=== PATIENT | male | born 1960 | race Caucasian/White ===

== ENCOUNTER 2016-10-13 19:07 | Emergency (ER) | payer MEDICAID ==
--- NOTE | 2016-10-19 02:33 | ER ---
ADMIT: 10/13/2016 RM/LOC: ER [facility] MR#: [id number] [address] [place] [address] Emergency Room Report SEX: M AGE: 56 : 1960 DATE: 10/13/2016 ADDENDUM: CHIEF COMPLAINT: Low blood sugars. HISTORY OF PRESENT ILLNESS: This is a 56-year-old male who lives in a halfway. He has a history of COPD, atrial fibrillation, and depression. Today, they were checking his blood sugars. They were in the low 60s. He was lethargic. They called 911. They gave him a half amp of D50. By the time he arrived here, it was over 100. We gave him a sandwich to eat. He has been alert, appropriate for us. He is afebrile. No signs of illness at this time. He denies any cough, denies any shortness of breath, denies any abdominal pain, and denies any dysuria. PAST MEDICAL HISTORY: COPD, depression, bronchitis, BPH, UTI, and atrial fibrillation. MEDICATIONS: Please see nurse's note. ALLERGIES: NO KNOWN ALLERGIES. SOCIAL HISTORY: Denies any tobacco, drug, or alcohol use. FAMILY HISTORY: Noncontributory. REVIEW OF SYSTEMS: CONSTITUTIONAL: Denies any fevers, chills, or sweats. CARDIOVASCULAR/RESPIRATORY: Denies any chest pain or shortness of breath. GASTROINTESTINAL/GENITOURINARY: Denies any nausea, vomiting, or diarrhea. All systems otherwise negative. PHYSICAL EXAMINATION: VITAL SIGNS: Blood pressure is 103/69, pulse 79, respirations 16, temperature is 95.9 tympanic, and saturation oxygen is 92% on room air. GENERAL APPEARANCE: He is no acute distress and alert. HEENT: Pharynx is moist. No tonsillar swelling or exudate. TMs are non- erythemic bilateral. HEART: Regular rate and rhythm. LUNGS: CTA bilateral, but decreased bilateral. ABDOMEN: Soft, nontender to palpation. SKIN: Normal color, warm, and dry. ADMIT: 10/13/2016 RM/LOC: ER [facility] MR#: [id number] [address] JEFE RUB[place] [address] Emergency Room Report SEX: M AGE: 56 : 1960 EXTREMITIES: Legs, no pedal edema. NEURO AND PSYCH: He is alert and oriented x3. COURSE IN THE EMERGENCY ROOM: CMP was moderately hemolyzed, but sodium was 132, potassium 3.6, chloride 85, bicarb is 38, BUN 19, glucose 151, and this was after eating a sandwich. CBC is normal except for white count 11.8, hemoglobin of 12.2, and platelets 433. Urine is normal. Chest x-ray is negative for any acute infection over-read by Dr. Raygoza. I asked the patient again if he had any complaints on checking on him again. He denies any complaints, feels okay to go back to the halfway. CLINICAL IMPRESSION: Hypoglycemic event. WILMA Cee / Fred Jasmine MD / modl JOB #: [id number] CC: Fred Jasmine MD, Attending Physician UNKNOWN, Family Physician
== END 2016-10-13 21:30 ==
LOC: ER 19:07
DX: E11.649 Type 2 diabetes mellitus with hypoglycemia without coma (principal); F32.9 Major depressive disorder, single episode, unspecified; I48.91 Unspecified atrial fibrillation; N40.0 Benign prostatic hyperplasia without lower urinary tract symptoms; Z87.440 Personal history of urinary (tract) infections; Z79.899 Other long term (current) drug therapy

== ENCOUNTER → 2016-10-19 | Outpatient (CLI) | payer MEDICAID ==
--- NOTE | ~2016-10-19 | ECH ---
Transthoracic Echocardiography Report (TTE) Demographics Patient Name RUBEN MAYBERRY Date of Study 10/19/2016 Patient Number [id number] Visit Number [id number] Date of 1960 Room Number Accession Number [id number] Gender Male Age 56 year(s) Referring Esther bIarra Oral Communication Instructor Coral Dukes Physician RDCS Physician Interpreting King Gerber Gama MD Manganese Heater Physician Supervising Ordering Physician Esther Ibarra MD/MLP Nurse Stress Clay Pigeon Loader Conclusions Summary Technically very difficult exam. Limited exam even with Definity utilized. Unable to visualize right heart. The estimated left ventricular ejection fraction is 40-45%. The left ventricle is mildly dilated . Mild concentric left ventricular hypertrophy. The left atrium is moderately dilated. Trivial mitral regurgitation by color Doppler. Procedure Type of Study TTE procedure:Echo Complete SF. Procedure Date Date: 10/19/2016 Start: 01:12 PM Technical Quality: Poor visualization due to body habitus. Indications:Atrial fibrillation. Appropriate Use Criteria: 9 Contrast Medium: Definity. Amount - 1 ml Height: 64 inches Weight: 409 pounds BSA: 2.65 m Rhythm: Atrial fibrillation HR: 102 bpm BP: 142/100 mmHg M-Mode/2D Measurements LV Diastolic Dimension: 6.18 cm LV Systolic Dimension: 5.04 cm LV Septum Diastolic: 1.15 cm LV PW Diastolic: 1.01 cm AO Root Dimension: 3.34 cm Cardiac Output: 4.29 l/min LA Dimension: 4.4 cm Cardiac Index: 1.62 l/min*m RV Diastolic Dimension: 3.09 cm LVOT: 2.23 cm LVOT VTI: 10.78 cm LV Stroke volume: 42.08 ml LV Stroke volume index: 15.88 ml/m Doppler Measurements AV Mean Gradient: 2.36 mmHg MV Peak E-Wave: 1.23 m/s LVOT Peak Velocity: 0.68 m/s AV Area (Continuity):2.65 cm MV Deceleration Time: 254.6 msec MV Area (PHT): 2.98 cm PV Peak Velocity: 0.74 m/s PV Peak Gradient: 2.19 mmHg Findings Left Ventricle The left ventricle is mildly dilated . Mild concentric left ventricular hypertrophy. Unable to assess diastolic function. Right Ventricle Unable to visualize right heart chambers. Left Atrium The left atrium is moderately dilated. Right Atrium Unable to visualize right heart chambers. Mitral Valve Normal mitral valve structure and function. Trivial mitral regurgitation by color Doppler. Aortic Valve The aortic valve was not well imaged. The aortic valve is mildly sclerotic. Tricuspid Valve Unable to visualize. Pulmonic Valve The pulmonic valve is not well visualized. Mild pulmonic valve regurgitation by color Doppler. Pericardial Effusion No evidence of pericardial effusion. Miscellaneous Visualized portions of the aortic root appear normal in size. Unable to visualize ascending aorta. Pleural Effusion Unable to comment on. Contractility Score LV regional wall motion:(0-Non visualized 1-Normal 2-Hypokinesis 3-Akinesis 4-Dyskinesis 5-Aneurysm) Signature
== END | disposition home or self-care (01) ==
LOC: CARD 12:40
DX: I48.91 Unspecified atrial fibrillation (principal); I49.5 Sick sinus syndrome; I51.7 Cardiomegaly